=== PATIENT | female | born 1975 | race Caucasian/White ===

== ENCOUNTER 2019-01-21 08:25 | Inpatient (IN) | payer BC ==
[~2019-01-21] VITALS: Ht 152.4 cm; Wt 61.5 kg
[2019-01-21] VITALS (27 sets, daily range): BP systolic 114–156; BP diastolic 63–95; PULSE 82–108; RESP 9–17; Ht 152.4 cm; Wt 61.5 kg
[~2019-01-21 08:25] MED LIST: CEFAZOLIN 2 GM/50 ML (PMX) 50 ML IVPB ONE; MEDR10TA2 PO
[2019-01-21] MEDS: LACTATED RINGER'S 1,000 ML (ENTER RATE) IV SCH (09:44)
[2019-01-21] MEDS ORDERED: BUPIVACAINE 0.5%/EPI (SDV) 10 ML INJ ONE (10:49)
[2019-01-21] MEDS ORDERED: MEPERIDINE 25 MG INJ IV PRN (11:00)
[2019-01-21] MEDS ORDERED: ONDANSETRON 4 MG INJ IV PRN ×2 (11:00→14:00)
[2019-01-21] MEDS ORDERED: HYDROmorphONE 1 MG/5 ML IV SYRINGE IV PRN ×3 (11:00)
[2019-01-21] MEDS ORDERED: DIPHENHYDRAMINE 50 MG INJ IV PRN (11:00)
[2019-01-21] MEDS ORDERED: FENTAnyl 50 MCG/ML VIAL IV PRN ×3 (11:00)
[2019-01-21] MEDS ORDERED: SEVOFLURANE 15 MIN ONE (11:00)
[2019-01-21] MEDS ORDERED: PROCHLORPERAZINE 10 MG INJ IV PRN (11:00)
[2019-01-21] MEDS ORDERED: LIDOCAINE 2% (SDV) 5 ML INJ ONE (11:02)
[2019-01-21] MEDS ORDERED: MIDAZOLAM 1 MG/ML 2 ML INJ ONE (11:02)
[2019-01-21] MEDS ORDERED: SUCCINYLCHOLINE CHLORIDE 100 MG/5 ML SYG IV ONE (11:02)
[2019-01-21] MEDS ORDERED: PROPOFOL 20 ML ONE (11:02)
[2019-01-21] MEDS ORDERED: FENTAnyl 50 MCG/ML VIAL ONE (11:02)
[2019-01-21] MEDS ORDERED: ROPIVACAINE 0.5 % 30 ML VIAL ONE (11:05)
[2019-01-21] MEDS ORDERED: BUPIVACAINE 0.5%/EPI (SDV) 10 ML INJ INJ ONE (11:15)
[2019-01-21] MEDS ORDERED: CEFAZOLIN 1 GM INJ ONE ×2 (11:43)
[2019-01-21] MEDS ORDERED: ONDANSETRON 4 MG INJ ONE (11:45)
[2019-01-21] MEDS ORDERED: FAMOTIDINE 20 MG INJ ONE (11:45)
[2019-01-21] MEDS ORDERED: DEXAMETHASONE 4 MG/ML 5 ML INJ ONE (11:45)
[2019-01-21] MEDS ORDERED: EPHEDrine 25 MG/5 ML SYG ONE (12:31)
[2019-01-21] MEDS ORDERED: HYDROmorphONE 2 MG/ML SYG ONE (12:58)
[2019-01-21] MEDS ORDERED: ROCURONIUM 50 MG INJ ONE ×2 (13:09)
[2019-01-21] MEDS ORDERED: SUGAMMADEX SODIUM 200 MG/2 ML VIAL IV ONE (13:40)
[2019-01-21] MEDS ORDERED: NALOXONE (0.4 MG/ML) INJ IV PRN (14:00)
[2019-01-21] MEDS ORDERED: KETOROLAC 30 MG INJ IV PRN (14:00)
[2019-01-21] MEDS ORDERED: HYDROmorphONE 0.5 MG/0.5 ML SYG IV PRN ×2 (14:00)
[2019-01-21] MEDS: HYDROmorphONE 0.2 MG/ML PCA IV SCH (14:43)
[2019-01-21] MEDS ORDERED: HYDROmorphONE 0.2 MG/ML PCA IV SCH (15:30)
[2019-01-21] MEDS: LACTATED RINGER'S 1,000 ML IV SCH ×3 (16:47→23:30)
[2019-01-21] MEDS: CEFAZOLIN 1 GM/50 ML (PMX) 50 ML IVPB SCH (20:56)
[2019-01-22] MEDS: DIPHENHYDRAMINE 50 MG INJ IV PRN ×2 (00:19→09:23)
[2019-01-22 00:33] VITALS: BP 114/71; PULSE 76; RESP 17
[2019-01-22] MEDS: CEFAZOLIN 1 GM/50 ML (PMX) 50 ML IVPB SCH ×3 (04:07→21:05)
[2019-01-22] MEDS: HYDROmorphONE 0.2 MG/ML PCA IV SCH (05:01)
[2019-01-22] MEDS: LACTATED RINGER'S 1,000 ML (ENTER RATE) IV SCH (07:00)
[2019-01-22] MEDS: LACTATED RINGER'S 1,000 ML IV SCH ×2 (07:43→17:33)
[2019-01-22 08:26] VITALS: BP 118/71; PULSE 87; RESP 18
[2019-01-22 15:46] VITALS: BP 108/64; PULSE 78; RESP 18
[2019-01-22 20:00] VITALS: BP 134/78; PULSE 86; RESP 18
[2019-01-22] MEDS: ALPRAZOLAM 0.25 MG TAB PO PRN (21:05)
[2019-01-23] VITALS: BP 123/80; PULSE 82; RESP 18
[2019-01-23] MEDS: LACTATED RINGER'S 1,000 ML IV SCH ×4 (01:00→18:23)
[2019-01-23 07:19] VITALS: BP 125/83; PULSE 91; RESP 17
[2019-01-23] MEDS: DOCUSATE SODIUM 250 MG CAP PO SCH (09:00)
[2019-01-23 14:39] VITALS: BP 100/56; PULSE 74; RESP 17
[2019-01-23 15:18] VITALS: BP 157/88; PULSE 94; RESP 17
[2019-01-23 19:49] VITALS: BP 150/94; PULSE 101; RESP 18
[2019-01-23] MEDS: ALPRAZOLAM 0.25 MG TAB PO PRN (20:30)
[2019-01-24] MEDS: LACTATED RINGER'S 1,000 ML IV SCH ×3 (01:00→17:00)
[2019-01-24 02:05] VITALS: BP 140/82; PULSE 98; RESP 20
[2019-01-24 07:09] VITALS: BP 154/92; PULSE 83; RESP 18
[2019-01-24] MEDS: DOCUSATE SODIUM 250 MG CAP PO SCH (09:00)
[2019-01-24 14:37] VITALS: BP 154/93; PULSE 88; RESP 18
== END 2019-01-24 19:20 | disposition home or self-care (01) | DRG 743 ==
LOC: REC 08:25 → EDSTATUS 10:30 → MS1 16:39
PROVIDERS: ADMIT Obstetrics & Gynecology; ATTEND Obstetrics & Gynecology
PROC: 0UT90ZL Resection of Uterus, Supracervical, Open Approach (ICD-10-PCS; principal; 2019-01-21 10:30)
DX: N94.6 Dysmenorrhea, unspecified (principal); R10.2 Pelvic and perineal pain; D25.1 Intramural leiomyoma of uterus; D64.9 Anemia, unspecified
CPT/HCPCS: 71045; 80053; 85025; 85610; 85730; 86850; 86900; 86901; 87086; 88307; 93005; J0690; J1100; J1170; J1200; J1885; J2175; J2250; J2405; J2795; J3010; J7120